=== PATIENT | female | born 1990 | race Caucasian/White ===

== ENCOUNTER 2018-05-29 19:58 | Emergency (ER) | payer SELFPAY, OTHER ==
[2018-05-29] MEDS: HYDROCODONE/APAP (5/325) TAB PO (23:32)
[2018-05-29] MEDS: CYCLOBENZAPRINE 10 MG TAB PO (23:48)
[2018-05-29] MEDS: IBUPROFEN 600 MG TAB PO (23:49)
== END 2018-05-30 00:13 | disposition home or self-care (01) ==
LOC: FTE 05-30 00:13
DX: S16.1XXA Strain of muscle, fascia and tendon at neck level, initial encounter (principal); S39.012A Strain of muscle, fascia and tendon of lower back, initial encounter; J45.909 Unspecified asthma, uncomplicated; V49.40XA Driver injured in collision with unspecified motor vehicles in traffic accident, initial encounter
CPT/HCPCS: 99284

== ENCOUNTER 2019-02-23 18:51 | Emergency (ER) | payer BC, OTHER ==
[2019-02-23] MEDS: HYDROCODONE/APAP (10/325) TAB PO (22:07)
[2019-02-23] MEDS: KETOROLAC 30 MG INJ IM (22:07)
== END 2019-02-24 00:06 | disposition home or self-care (01) ==
LOC: FTE 02-24 00:06
DX: S93.401A Sprain of unspecified ligament of right ankle, initial encounter (principal); J45.909 Unspecified asthma, uncomplicated; W01.0XXA Fall on same level from slipping, tripping and stumbling without subsequent striking against object, initial encounter; Y92.89 Other specified places as the place of occurrence of the external cause
CPT/HCPCS: 73590; 73610-RT; 73630; 81025; 96372; 99284-25